=== PATIENT | female | born 1980 | race Hispanic/Latino ===

== ENCOUNTER 2023-02-21 07:44 | Emergency (ER) | payer BC, SELFPAY ==
[2023-02-21 07:46] VITALS: BP 158/105; PULSE 105; RESP 28; TEMP 36.4; O2SAT 92; BMI 59.3
--- NOTE | 2023-02-21 08:05 | RAD_ITS ---
INDICATION: Injury/Pain EXAMINATION/TECHNIQUE: X-RAY - XR Spine Lumbar 2 or 3 Views COMPARISON: None. FINDINGS: VERTEBRAE: Preserved vertebral body height. No fracture. No spondylolisthesis. Preservation of the normal lumbar lordosis. No significant facet arthropathy. DISCS: Disc spaces are maintained. INCLUDED ABDOMEN: Included bowel gas pattern is non-obstructive. RAD/Lumbar Spine 2 or 3 Views IMPRESSION: No evidence of lumbar spinal fracture or spondylolisthesis. Electronically Signed: Vida Campbell MD at 8:48 EDT ,
--- NOTE | 2023-02-21 08:06 | RAD_ITS ---
INDICATION: Injury/Pain EXAMINATION/TECHNIQUE: X-RAY - RIGHT XR Tibia/Fibula 2 Views 3 VIEWS COMPARISON: FINDINGS: SOFT TISSUES: No soft tissue swelling or gas. No radiopaque foreign body. BONES/JOINTS: There is partial visualization of a distal metaphyseal femoral fracture. There is intra-articular proximal tibial fracture. There is a fracture within the proximal fibular metaphysis as well. No sclerotic or destructive changes observed. RAD/Tibia & Fibula 2 Views IMPRESSION: Comminuted proximal tibial fracture. Proximal fibular fracture. Partial visualization of distal femur fracture. Electronically Signed: Vida Campbell MD at 9:02 EDT ,
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
--- NOTE | 2023-02-21 08:48 | RAD_ITS ---
INDICATION: Injury/Pain EXAMINATION/TECHNIQUE: X-RAY - RIGHT XR Knee 1 or 2 Views 2 VIEWS COMPARISON: FINDINGS: SOFT TISSUES: There is a joint effusion. No radiopaque foreign body. BONES/JOINTS: There is a comminuted intra-articular fracture of the proximal tibia. There is a fracture within the proximal fibular metaphysis as well. There appears to be a cortical defect within the medial femoral condyle. No sclerotic or destructive changes observed. RAD/Knee 1 or 2 Views IMPRESSION: Proximal tibial fracture. Proximal fibular fracture. Possible distal femur fracture. Electronically Signed: Vida Campbell MD at 10:14 EDT ,
[2023-02-21] MEDS: Ondansetron 4 MG/2 ML Vial IV (09:13)
[2023-02-21] MEDS: morphine 8 MG/ML Syringe IV (09:13)
[2023-02-21 09:45] VITALS: RESP 16
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
[2023-02-21 10:12] LABS: Absolute Neutrophil Count 18.9 X10^3/uL (2.0-7.7); Basophil% 0.5 % (0-1); Eosinophil# 0.07 X10^3/uL; Eosinophils% 0.3 % (0-5); Hematocrit 42.9 % (37-47); Hemoglobin 13.5 g/dL (12.0-15.0); Lymphocyte % 6.3 % (19-41); Mean Corp Hgb Conc 31.5 g/dL (32-36); Mean Corpuscular Hgb 26.4 pg (27.0-32.0); Mean Corpuscular Volume 83.8 fL (81-99); Mean Platelet Vol. 10.6 fl (6.2-12.0); Monocyte# 1.42 X10^3/uL; Monocyte% 6.4 % (0-10); NRBC Flagged by Analyzer 0 % (0-5); Neutrophil # 18.92 X10^3/uL (2.7-7.7); Neutrophil % 85.6 % (47-70); Platelet Count 362 K/mm3 (150-450); RBC Distribution Width CV 15.7 % (11.6-14.6); RBC Distribution Width SD 46.9 fl (35.1-43.9); Red Blood Count 5.12 M/mm3 (4.2-5.4); White Blood Count 22.1 K/mm3 (4.4-11.0)
[2023-02-21 10:25] LABS: Anion Gap 9 (5-15); BUN 13 mg/dL (7-18); BUN/Creat Ratio 16.1 RATIO (10-20); Calcium,Total 9.1 mg/dL (8.5-10.1); Chloride 95 mmol/L (98-107); Creatinine, Serum 0.81 mg/dL (0.55-1.02); EST Glomerular Filtration Rate 83 mL/min (>60); Est Glom Filt Rate - Afr Amer 101 mL/min (>60); Estimated Creatinine Clearance 69.67 ml/min; Glucose 371 mg/dL (74-106); Potassium 4.6 mmol/L (3.5-5.1); Sodium Level 134 mmol/L (136-145)
--- NOTE | 2023-02-21 10:30 | NURSING ---
SET UP TRANSPORT TO [facility] BY [facility]OUGH PHYSICIANS-- ETA GIVEN WAS 20 MINUTES-- 1050A
[2023-02-21 11:00] VITALS: BP 149/92
== END 2023-02-21 11:40 | disposition short-term general hospital (02) ==
PROVIDERS: Emergency Provider Emergency Medicine; Visit Provider Emergency Medicine
DX: S82.142A Displaced bicondylar fracture of left tibia, initial encounter for closed fracture (principal); E66.01 Morbid (severe) obesity due to excess calories; S39.012A Strain of muscle, fascia and tendon of lower back, initial encounter; S20.20XA Contusion of thorax, unspecified, initial encounter; Y92.410 Unspecified street and highway as the place of occurrence of the external cause; V58.6XXA Passenger in pick-up truck or van injured in noncollision transport accident in traffic accident, initial encounter
CPT/HCPCS: 71045; 72100; 73560; 73590; 80048; 85025; 93005; 96374; 96375; 99285; A4216; J2405